=== PATIENT | female | born 1930 | race Caucasian/White ===

== ENCOUNTER 2016-03-25 13:05 | Inpatient (IN) | payer MEDICARE, BC ==
[2016-03-25 14:48] VITALS: BMI 22.5
[2016-03-25] MEDS ORDERED: PROMETHAZ-COD 6.25-10 MG/5 ML 5 ML CUP PO PRN (15:31)
[2016-03-25] MEDS: IPRATROPIUM-ALBUTEROL 3 ML NEB INHALATION SCH ×2 (15:44→19:44)
--- NOTE | 2016-03-25 16:21 | XR ---
EXAMINATION TYPE: XR chest 2V DATE OF EXAM: 03/25/2016 4:01 PM COMPARISON: 06/29/2015 HISTORY: Short of breath TECHNIQUE: Frontal and lateral views of the chest are obtained. FINDINGS: Heart is enlarged. There is pulmonary vascular congestion. There is slight blunting of cos tophrenic angles. There is a right axillary pacemaker with the lead tip in the right ventricle. Thora cic aorta is atheromatous. IMPRESSION: There is new congestive heart failure with pleural fluid and mild pulmonary edema compar ed to last exam.
[2016-03-25 16:25] LABS: HGB 13.7 gm/dL (11.4-16.0); MCHC 33.5 g/dL (31.0-37.0)
[2016-03-25] MEDS: SODIUM CHLORIDE 0.9% 1,000 ML IV SCH (16:32)
[2016-03-25] MEDS: methylPREDNISolone SOD SUCCI 40 MG/ML 1 ML VIAL IV SCH ×2 (16:33→23:29)
[2016-03-25 16:35] LABS: Basophils % (A) 1 %; CHCM 34.7; Eosinophils % (A) 1 %; HCT 40.8 % (34.0-46.0); HDW 2.39; Luc % (Auto) 3; Lymphocytes # (A) 1.1 k/uL (1.0-4.8); Lymphocytes % (A) 35 %; MCV 95.6 fL (80.0-100.0); Mean Platelet Volume 7.3; Monocytes # (A) 0.4 k/uL (0-1.0); Monocytes % (A) 11 %; Neutrophils # (A) 1.6 k/uL (1.3-7.7); Neutrophils % (A) 49 %; RBC 4.27 m/uL (3.80-5.40); RDW 13.5 % (11.5-15.5); WBC 3.2 k/uL (3.8-10.6)
[2016-03-25 16:40] LABS: ALT 68 U/L (9-52); AST 37 U/L (14-36); Alkaline Phosphatase 68 U/L (38-126); Anion Gap 11 mmol/L; Blood Urea Nitrogen 14 mg/dL (7-17); Calcium 9.3 mg/dL (8.4-10.2); Carbon Dioxide 27 mmol/L (22-30); Chloride 90 mmol/L (98-107); Glucose 112 mg/dL (74-99); Non-African American GFR(MDRD) >60 (>60 ml/min/1.73 sqM); Potassium 4.3 mmol/L (3.5-5.1); Sodium 128 mmol/L (137-145); Total Bilirubin 1.3 mg/dL (0.2-1.3); Total Protein 7.8 g/dL (6.3-8.2)
[2016-03-25] MEDS: AZITHROMYCIN 500 MG in SODIUM CHLORIDE 0.9% 250 ML IVPB SCH (17:35)
[2016-03-25] MEDS ORDERED: HYDROCHLOROTHIAZIDE 25 MG TAB PO SCH (21:00)
--- NOTE | 2016-03-25 22:41 | HP ---
CHIEF COMPLAINT: An 86-year-old white female is admitted with cough, congestion, shortness of breath worsening over the past week to the point she is dizzy with ambulation, oxygen level in the low 90s, unable to control cough and shortness of breath at home. She was admitted for probable COPD exacerbation, pneumonia and possibly congestive heart failure. SHE IS A DNR AT THIS TIME. Was started on IV Zithromax, DuoNeb updrafts, IV Rocephin and continue the home medications. She has a history of hypothyroidism, hypertension, diabetes mellitus, dementia, possibly atrial fibrillation for which she is on Coumadin. PAST SURGICAL HISTORY: See old chart. MEDICAL HISTORY: See old chart. MEDICATIONS: 1. Metformin 500 q.h.s. 2. Protonix 40 daily. 3. Hydrochlorothiazide 25 mg daily. 4. Potassium 20 mEq daily. 5. Atenolol 50 daily. REVIEW OF SYSTEMS: CARDIAC: As mentioned above. PULMONARY: As mentioned above. ENDOCRINE: She has noticed 1 or 2 pounds weight gain in the past week or 2. RESPIRATORY: Severe chronic cough, worsening over the past week with green-yellow phlegm, somewhat clear. CONSTITUTIONAL: Weakness, fatigue, dizziness, lightheadedness. SHE IS DNR. OPHTHALMOLOGIC: Negative. GI: Negative. : Negative. MUSCULOSKELETAL: She has chronic diffuse arthritis. PSYCH: Negative. SOCIAL HISTORY: She is moving out of [place] to live with her son at home for the last 2 days. Breathing has gotten worse over the last 2 days. She was a smoker, drank alcohol. PHYSICAL EXAM: Temp 97, pulse is 60s to 80s, respiratory rate 18 to 25, blood pressure 150s/70s. O2 is 96% on room air at this time. CARDIOVASCULAR: S1, S2. Lungs show scattered rhonchi and wheeze x4. Audible wheezing is heard. VASCULAR: There are no carotid bruits. HEMATOLOGIC: Negative Homans'. GI: Soft, nontender. VASCULAR: Normal dorsalis pedis, posterior tibial pulse, radial pulse. MUSCULOSKELETAL: Range of motion full x4. PSYCH: Fair mood and affect. NEUROLOGIC: Alert and oriented x3. No focal weakness. BNP is elevated at 2450. Chest x-ray shows CHF exacerbation. ASSESSMENT: 1. Acute diastolic congestive heart failure exacerbation. 2. Acute tracheobronchitis. 3. Acute chronic obstructive pulmonary disease exacerbation. 4. History of hypertension. 5. Diabetes mellitus. Will rule out flu with flu titers. IV steroids, updraft treatments, antibiotics are given. Cardiology and pulmonary consult were given.
[2016-03-25] MEDS: WARFARIN 5 MG TAB PO SCH (23:22)
[2016-03-25] MEDS: LEVOTHYROXINE 100 MCG TAB PO SCH (23:22)
[2016-03-25] MEDS: FUROSEMIDE 10 MG/ML 2 ML VIAL IV SCH (23:22)
[2016-03-25] MEDS: PANTOPRAZOLE 40 MG TABLET PO SCH (23:22)
[2016-03-25] MEDS: metFORMIN 500 MG TAB PO SCH (23:22)
[2016-03-25 23:30] LABS: Appearance,Urine Clear (Clear); Bilirubin,Urine Negative (Negative); Glucose,Urine (UA) Negative (Negative); Ketones,Urine Negative (Negative); Leukocyte Esterase,Urine Negative (Negative); Nitrite,Urine Negative (Negative); Particle Count 705; Protein,Urine 1+ (Negative); RBC,Urine 35 /hpf (0-5); Specific Gravity,Urine 1.007 (1.001-1.035); Squamous Epithelial Cell,Urine <1 /hpf (0-4); UA Billing (MACRO vs. MICRO) MICRO; Urobilinogen,Urine <2.0 mg/dL (<2.0); WBC,Urine 1 /hpf (0-5)
[2016-03-26 06:46] LABS: INR 2.8 (<1.1); Prothrombin Time 27.3 sec (9.0-12.0)
[2016-03-26] MEDS: IPRATROPIUM-ALBUTEROL 3 ML NEB INHALATION SCH ×4 (07:14→20:20)
[2016-03-26] MEDS: methylPREDNISolone SOD SUCCI 40 MG/ML 1 ML VIAL IV SCH ×2 (10:09→17:43)
[2016-03-26] MEDS: DONEPEZIL 5 MG TAB PO SCH (10:09)
[2016-03-26] MEDS: ATENOLOL 50 MG TAB PO SCH (10:09)
[2016-03-26] MEDS: FUROSEMIDE 10 MG/ML 2 ML VIAL IV SCH (10:09)
[2016-03-26] MEDS: POTASSIUM CHLORIDE ER 20 MEQ TAB.ER PO SCH (10:10)
--- NOTE | 2016-03-26 10:58 | CONS ---
DATE OF CONSULTATION: CHIEF COMPLAINT: Shortness of breath. Manasa is an 86-year-old lady with history of dementia, COPD, and congestive heart failure who is admitted to hospital with cough, congestion, and shortness of breath. O2 sats were in the low 90s. She was initially admitted as a possible COPD exacerbation, pneumonia and congestive heart failure. She was on the fourth floor and was transferred to sixth floor probably because she was more short of breath. At the time of my evaluation, patient appears fine. She is ambulating in the hallway and is free of any symptoms. Does not have shortness of breath for sure. The patient has history of dementia and also A. fib I am told. PAST MEDICAL AND SURGICAL HISTORY: As per chart. I am not able to obtain any meaningful information from the patient. Medications include hydrochlorothiazide, atenolol, potassium, Protonix. REVIEW OF SYSTEMS: I am unable to obtain any from her as she is presently confused and unreliable historian. On exam, comfortable at rest. Heart rate is 80 beats per minute, blood pressure 140/60, respirations 16. There is no jugular venous distention. Chest exam reveals good air entry bilaterally. I do not hear any crackles or rhonchi. Heart exam reveals first and second heart sounds, a grade 3/6 systolic murmur at the apex. Abdomen is soft. Exam of the extremities did not reveal edema. Peripheral pulses are felt. Labs show that the INR is 2.8. Potassium is 4.3. BNP is 2540. Hemoglobin is 13.7. A chest x-ray shows congestive heart failure. ASSESSMENT: 1. Acute onset congestive heart failure, probably secondary to diastolic dysfunction. However, I will obtain a 2-D echo to document her LV function. The last echocardiogram was a year ago and at that time she had normal LV function. 2. Chronic obstructive pulmonary disease exacerbation. 3. History of atrial fibrillation. 4. Sick sinus syndrome status post permanent pacemaker. PLAN: We will treat the patient with IV Lasix, atenolol, aspirin. She will continue her Coumadin.
[2016-03-26 11:56] LABS: Glucose,Whole Blood 279 mg/dL (75-99)
[2016-03-26 17:09] LABS: Glucose,Whole Blood 198 mg/dL (75-99)
[2016-03-26] MEDS: INSULIN LISPRO (humaLOG) 300 UNIT/3 ML VIAL SQ SCH ×2 (17:46→20:59)
[2016-03-26] MEDS: AZITHROMYCIN 500 MG in SODIUM CHLORIDE 0.9% 250 ML IVPB SCH (17:47)
[2016-03-26 19:22] LABS: ALT 67 U/L (9-52); AST 55 U/L (14-36); Alkaline Phosphatase 123 U/L (38-126); Anion Gap 19 mmol/L; Blood Urea Nitrogen 21 mg/dL (7-17); Calcium 9.2 mg/dL (8.4-10.2); Carbon Dioxide 22 mmol/L (22-30); Chloride 89 mmol/L (98-107); Glucose 219 mg/dL (74-99); Non-African American GFR(MDRD) >60 (>60 ml/min/1.73 sqM); Sodium 130 mmol/L (137-145); Total Bilirubin 1.1 mg/dL (0.2-1.3); Total Protein 7.8 g/dL (6.3-8.2)
[2016-03-26 19:23] LABS: Basophils % (A) 0 %; CH 32.9; CHCM 34.8; Eosinophils % (A) 1 %; HDW 2.38; Luc # (Auto) 0.05; Luc % (Auto) 2; Lymphocytes # (A) 0.5 k/uL (1.0-4.8); Lymphocytes % (A) 21 %; MCH 31.6 pg (25.0-35.0); MCHC 33.3 g/dL (31.0-37.0); MCV 94.8 fL (80.0-100.0); Mean Platelet Volume 6.5; Monocytes # (A) 0.2 k/uL (0-1.0); Monocytes % (A) 9 %; Neutrophils # (A) 1.7 k/uL (1.3-7.7); Neutrophils % (A) 67 %; RBC 4.43 m/uL (3.80-5.40); RDW 13.3 % (11.5-15.5); WBC 2.6 k/uL (3.8-10.6); WBC (Perox) 2.92
[2016-03-26] MEDS: SODIUM CHLORIDE 0.9% 1,000 ML IV SCH (19:40)
[2016-03-26 20:58] LABS: Glucose,Whole Blood 126 mg/dL (75-99)
[2016-03-26] MEDS: PANTOPRAZOLE 40 MG TABLET PO SCH (20:59)
[2016-03-26] MEDS: LEVOTHYROXINE 100 MCG TAB PO SCH (20:59)
[2016-03-26] MEDS: WARFARIN 5 MG TAB PO SCH (21:00)
[2016-03-26] MEDS: metFORMIN 500 MG TAB PO SCH (21:00)
[2016-03-27] MEDS: methylPREDNISolone SOD SUCCI 40 MG/ML 1 ML VIAL IV SCH ×4 (00:27→22:35)
[2016-03-27 01:00] LABS: Hemoglobin A1C 6.3 % (4.2-6.1)
[2016-03-27 05:44] LABS: Prothrombin Time 39.7 sec (9.0-12.0)
[2016-03-27] MEDS: INSULIN LISPRO (humaLOG) 300 UNIT/3 ML VIAL SQ SCH ×4 (06:57→22:37)
[2016-03-27 07:00] LABS: Glucose,Whole Blood 179 mg/dL (75-99)
--- NOTE | 2016-03-27 08:36 | P.PN ---
Subjective 86-year-old being seen by the attending this morning. Patient is pleasantly confused. Patient was initially admitted for an exacerbation of COPD as well as possible pneumonia patients being followed by cardiology and pulmonary. Patients being treated for an acute onset congestive heart failure likely diastolic dysfunction. Patient has a history of an atrial fibrillation with sick sinus syndrome status post pacemaker. The INR this morning is 4 in which the Coumadin is on hold Objective - Vital Signs Vital signs: Vital Signs Temp 97.6 F 03/27/16 04:00 Pulse 73 03/27/16 04:00 Resp 16 03/27/16 04:00 BP 138/62 03/27/16 04:00 Pulse Ox 97 03/27/16 04:00 Intake & Output 03/26/16 03/27/16 03/27/16 18:59 06:59 18:59 Intake Total 160 Output Total 500 Balance 160 -500 Weight 53.8 kg Intake: IV 100 Sodium Chloride 0.9% 1, 100 000 ml @ 50 mls/hr IV . Q20H PHILLIP Rx#:[id number] Oral 60 Output: Urine 500 Other: # Voids 1 - Exam Physical exam 86-year-old female sitting up on the edge of the bed pleasant appears in no acute distress Lungs currently on room air sats are 97% diminished at the bases no audible wheezing no cough noted no use of accessory muscles to breathe Heart S1-S2 audible monitor currently sinus positive murmur noted Abdomen soft nontender extremities no edema - Labs CBC & Chem 7: 03/26/16 18:48 03/26/16 18:48 Labs: Abnormal Lab Results - Last 24 Hours (Table) 03/25/16 03/26/16 03/26/16 Range/Units 16:12 11:50 16:41 WBC (3.8-10.6) k/uL Lymphocytes # (1.0-4.8) k/uL PT (9.0-12.0) sec Sodium (137-145) mmol/L Chloride (98-107) mmol/L BUN (7-17) mg/dL Glucose (74-99) mg/dL POC Glucose (mg/dL) 279 H 198 H (75-99) mg/dL Hemoglobin A1c 6.3 H (4.2-6.1) % AST (14-36) U/L ALT (9-52) U/L 03/26/16 03/26/16 03/26/16 Range/Units 18:48 18:48 20:40 WBC 2.6 L (3.8-10.6) k/uL Lymphocytes # 0.5 L (1.0-4.8) k/uL PT (9.0-12.0) sec Sodium 130 L (137-145) mmol/L Chloride 89 L (98-107) mmol/L BUN 21 H (7-17) mg/dL Glucose 219 H (74-99) mg/dL POC Glucose (mg/dL) 126 H (75-99) mg/dL Hemoglobin A1c (4.2-6.1) % AST 55 H (14-36) U/L ALT 67 H (9-52) U/L 03/27/16 03/27/16 Range/Units 04:55 06:51 WBC (3.8-10.6) k/uL Lymphocytes # (1.0-4.8) k/uL PT 39.7 H (9.0-12.0) sec Sodium (137-145) mmol/L Chloride (98-107) mmol/L BUN (7-17) mg/dL Glucose (74-99) mg/dL POC Glucose (mg/dL) 179 H (75-99) mg/dL Hemoglobin A1c (4.2-6.1) % AST (14-36) U/L ALT (9-52) U/L Microbiology - Last 24 Hours (Table) 03/25/16 23:15 Urine Culture - Preliminary Urine,Voided Assessment and Plan Plan: Impression Present on admission shortness of breath likely due to acute onset congestive heart failure likely diastolic dysfunction Chronic COPD with an acute exacerbation History of atrial fibrillation on anticoagulation Coumadin Coagulopathy Coumadin induced Sick sinus syndrome status post permanent pacemaker Present on admission shortness of breath likely due to acute tracheobronchitis Plan Continue with the plan of care per cardiology service defer to Continue to monitor electrolytes keep in a therapeutic range Resume home meds Continue with the current aerosol bronchodilators Solu-Medrol 40 IV every 8 to be tapered by pulmonology Continue with the IV antibiotics Rocephin and Zithromax as ordered Further recommendations pending The above dictated assessment and findings were discussed with Dr. Acros Impression and the plan of care have been dictated as directed. Barbara Henriquez nurse practitioner acting as a scribe for Dr. Arcos
[2016-03-27] MEDS: IPRATROPIUM-ALBUTEROL 3 ML NEB INHALATION SCH ×5 (08:45→19:35)
[2016-03-27] MEDS: FUROSEMIDE 10 MG/ML 2 ML VIAL IV SCH (09:20)
[2016-03-27] MEDS: POTASSIUM CHLORIDE ER 20 MEQ TAB.ER PO SCH (09:20)
[2016-03-27] MEDS: DONEPEZIL 5 MG TAB PO SCH (09:20)
[2016-03-27] MEDS: ATENOLOL 50 MG TAB PO SCH (09:20)
--- NOTE | 2016-03-27 10:28 | PN ---
Manasa is an 86-year-old lady who is pleasantly confused from dementia and is admitted to hospital with shortness of breath. Shortness of breath was thought to be due to diastolic heart failure and COPD. At the time of my evaluation this morning, she remains pleasantly confused and denies any symptoms. INR is elevated at 4 and Coumadin will be held. On exam, comfortable at rest. Vital signs are stable. Chest exam reveals occasional rhonchi bilaterally. Heart exam reveals first and second heart sounds. Systolic murmur in the left lower sternal border. Abdomen is soft. Exam of the extremities did not reveal edema. Peripheral pulses are felt. Patient is currently on antibiotics, Lasix, K-Dur, Coumadin, Tenormin. ASSESSMENT: Shortness of breath due to a combination of problems. I am going to switch her Lasix to p.o., hold the Coumadin. She is stable to be discharged either this evening or tomorrow morning.
--- NOTE | 2016-03-27 10:35 | PN ---
An 86-year-old white female admitted with dementia, COPD, congestive heart failure with cough, congestion, shortness of breath. She is much improved since yesterday. Oxygen for now are improving into the higher 90s with decreased cough, congestion. She is on IV Lasix, which helped her breathing as well as updraft treatments and IV antibiotics. She also has acute onset congestive heart failure secondary to diastolic dysfunction, COPD exacerbation improving, history of atrial fibrillation, sick sinus syndrome status post permanent pacemaker. Continue with IV Lasix, atenolol, aspirin and Coumadin. She is much improved. She is getting some delirium from being in the hospital and worsening of her dementia. We will continue to watch her closely. Diabetes mellitus will be controlled with Accu-Cheks protocol. Hydrochlorothiazide was discontinued secondary to hyponatremia. Please see further orders in the chart.
--- NOTE | 2016-03-27 10:52 | ECHOF ---
Referral Reason:chf MEASUREMENTS -------- HEIGHT: 165.1 cm WEIGHT: 53.5 kg BP: RVIDd: 3.1 cm (< 3.3) IVSd: 1.2 cm (0.6 - 1.1) LVIDd: 4.9 cm (3.9 - 5.3) LVPWd: 1.1 cm (0.6 - 1.1) IVSs: 1.6 cm LVIDs: 3.9 cm LVPWs: 1.2 cm LA Diam: 5.8 cm (2.7 - 3.8) LAESV Index (A-L): 83.40 ml/m Ao Diam: 2.6 cm (2.0 - 3.7) AV Cusp: 1.1 cm (1.5 - 2.6) LA Diam: 5.7 cm (2.7 - 3.8) MV EXCURSION: 15.618 mm (> 18.000) MV EF SLOPE: 62 mm/s (70 - 150) EPSS: 0.7 cm AV maxP.09 mmHg AV meanP.97 mmHg RAP: 20.00 mmHg RVSP: 62.82 mmHg FINDINGS -------- Paced rhythm. This was a technically adequate study. There is mild concentric left ventricular hypertrophy. Overall left ventricular systolic function is low-normal with, an EF between 50 - 55 %. The right ventricle is normal in size. LA is severely dilated >40 ml/m2 The right atrium is moderately enlarged. Peak/mean gradient across the Aortic Valve is 22.09mmHg / 8.97mmHg. Aov is stenotic with decrease opening. Mild mitral annular calcification present. Mild mitral regurgitation is present. Moderate to severe tricuspid regurgitation present. Right ventricular systolic pressure is normal at < 35 mmHg. There is moderate to severe pulmonary hypertension. There is no pulmonic regurgitation present. The aortic root size is normal. There is no pericardial effusion. CONCLUSIONS -------- 1. There is mild concentric left ventricular hypertrophy. 2. Right ventricular systolic pressure is normal at < 35 mmHg. 3. There is moderate to severe pulmonary hypertension. 4. Overall left ventricular systolic function is low-normal with, an EF between 50 - 55 %. 5. LA is severely dilated >40 ml/m2 6. The right atrium is moderately enlarged. 7. Peak/mean gradient across the Aortic Valve is 22.09mmHg / 8.97mmHg. 8. Aov is stenotic with decrease opening. 9. Mild mitral annular calcification present. 10. Mild mitral regurgitation is present. 11. Moderate to severe tricuspid regurgitation present. SLATE SPLITTER: Leola Wood RDCS
[2016-03-27 12:13] LABS: Glucose,Whole Blood 299 mg/dL (75-99)
[2016-03-27 17:09] LABS: Glucose,Whole Blood 190 mg/dL (75-99)
[2016-03-27] MEDS: AZITHROMYCIN 500 MG in SODIUM CHLORIDE 0.9% 250 ML IVPB SCH (17:37)
[2016-03-27 21:14] LABS: Glucose,Whole Blood 180 mg/dL (75-99)
[2016-03-27] MEDS: LEVOTHYROXINE 100 MCG TAB PO SCH (22:35)
[2016-03-27] MEDS: WARFARIN 5 MG TAB PO SCH (22:35)
[2016-03-27] MEDS: metFORMIN 500 MG TAB PO SCH (22:35)
[2016-03-27] MEDS: SODIUM CHLORIDE 0.9% 1,000 ML IV SCH (22:39)
[2016-03-28] MEDS: PANTOPRAZOLE 40 MG TABLET PO SCH ×2 (06:13→20:28)
[2016-03-28 06:25] LABS: Glucose,Whole Blood 196 mg/dL (75-99)
[2016-03-28] MEDS: INSULIN LISPRO (humaLOG) 300 UNIT/3 ML VIAL SQ SCH ×4 (07:05→20:52)
[2016-03-28] MEDS: FUROSEMIDE 10 MG/ML 2 ML VIAL IV SCH (08:02)
[2016-03-28] MEDS: DONEPEZIL 5 MG TAB PO SCH (08:02)
[2016-03-28] MEDS: methylPREDNISolone SOD SUCCI 40 MG/ML 1 ML VIAL IV SCH (08:03)
[2016-03-28] MEDS: POTASSIUM CHLORIDE ER 20 MEQ TAB.ER PO SCH (08:03)
[2016-03-28] MEDS: ATENOLOL 50 MG TAB PO SCH (08:03)
[2016-03-28] MEDS: IPRATROPIUM-ALBUTEROL 3 ML NEB INHALATION SCH ×4 (08:06→21:10)
[2016-03-28 08:41] LABS: Prothrombin Time 58.5 sec (9.0-12.0)
[2016-03-28 09:08] LABS: INR 5.8 (<1.1)
--- NOTE | 2016-03-28 11:28 | CDI ---
In responding to this query, please exercise your independent professional judgment. The [facility] Coding Staff and Clinical Documentation Specialists appreciate your assistance in clarifying documentation, maintaining compliance with coding guidelines, accurately documenting patients condition and capturing severity of illness. The fact that a question is asked does not imply that any particular answer is desired or expected. Communication forms are a method of clarifying documentation and are not made part of the Legal Health Record. Thank you in advance for your clarification. Last Revision, December 2014 Leo Valdes [address] [place] [address] Documentation Clarification Form Date: 03/28/2016 11:19:00 AM From: Nicole Dobbins RN, CCDS Admit Date: 03/25/2016 1:42:00 PM Patient Name: Manasa Mckeon Visit Number: [id number] Dr. Billy Arcos/Barbara Henriquez CNP Atrial fibrillation is documented in the H&P and Progress Notes. History/Risk Factors: Acute diastolic CHF, COPD, Atrial Fib, Sick Sinus Syndrome, Permanent Pacemaker Clinical Indicators: 03/27 Attending Progress Note: "History of atrial fibrillation on anticoagulation Coumadin Coagulopathy Coumadin induced." EKG/telemetry: Sick sinus syndrome with permanent pacemaker Treatment: Consults: Cardiology Tenormin 50mg PO QAM Coumadin 5mg PO Q HS In your professional opinion, can you please clarify the type of atrial fibrillation, if known? Chronic/Permanent Paroxysmal Persistent Other, please specify Unable to determine Please document in your progress notes and discharge summary in order to capture severity of illness and risk of mortality. Include clinical findings that support your diagnosis. FYI: Press F11 to launch patient chart Place X here if this finding has no clinical significance, is not applicable or if you are not able to provide any additional documentation. LIBIA
[2016-03-28 12:03] LABS: Glucose,Whole Blood 303 mg/dL (75-99)
[2016-03-28] MEDS: FUROSEMIDE 20 MG TAB PO SCH (12:14)
--- NOTE | 2016-03-28 12:31 | PN ---
An 86-year-old lady with severe dementia is admitted to hospital with shortness of breath due to a combination of problems including COPD and CHF. This morning, she is better. Continues to be pleasantly confused, ambulating without any issues. On exam, comfortable at rest. Vital signs are stable. There is no jugular venous distention. Chest exam reveals good air entry without any crackles or rhonchi. Heart exam reveals first and second heart sounds. No gallop. Exam of extremities did not reveal edema. Peripheral pulses are felt. Patient is currently on atenolol, Lasix, K-Dur, Coumadin. ASSESSMENT: 1. Atrial fibrillation with controlled ventricular rate. 2. Congestive heart failure exacerbation. 3. Coagulopathy. Patient's INR is elevated at 5.8, Coumadin is currently on hold. This is probably related to the antibiotics. Please give vitamin K to reverse the effects.
[2016-03-28] MEDS ORDERED: PHYTONADIONE ORAL 5 MG/5 ML ORAL.SYRG PO STA (14:38)
[2016-03-28] MEDS: SODIUM CHLORIDE 0.9% 1,000 ML IV SCH ×2 (14:42→20:29)
[2016-03-28] MEDS ORDERED: INFLUENZA VACCINE (3YR+) 60 MCG/0.5 ML SYRINGE IM ONE (15:48)
--- NOTE | 2016-03-28 15:51 | P.PN ---
Subjective 86-year-old female being seen this morning. Currently sitting up in bed. Discharge plan is in progress. Patient is being followed by keycase assemblercity maintenance manager is requesting that the patient be transferred to a subacute rehab. Monitor continues to show atrial fibrillation with paced rhythm rate controlled. Patient has a history of chronic atrial fibrillation. Additionally has a history of sick sinus syndrome with a permanent pacemaker. Patient is anticoagulated on Coumadin. On admission patient's INR was elevated to 4. This morning it's 5.8 which was corrected with vitamin K 86-year-old female was admitted on the day of admission on March 25 with a chief complaint of developing cough audible wheezing shortness of breath dizziness with ambulation. Patient lives at the [facility]. Patient has a code status indicating a DO NOT RESUSCITATE. Patient does have a history of hypothyroid dementia and chronic atrial fibrillation on anticoagulation. Patient was monitored closely. Additionally patient was followed by cardiology service. They felt that the elevated INR was probably related to the patient's antibiotics that the patient was on echocardiogram obtained on March 26 showed moderate to severe pulmonary hypertension and a left ventricular systolic function low normal EF between 50 and 55%. Patient was treated for what appears to be diastolic heart failure decompensated was given IV Lasix to diurese with a noted improvement in patient's symptoms. The discharge plan was followed by the keycase assembler at the request of the family patient was transferred to [facility] facility of [facility] choice for rehab In Objective - Vital Signs Vital signs: Vital Signs Temp 97.9 F 03/28/16 15:22 Pulse 65 03/28/16 15:22 Resp 21 03/28/16 15:22 BP 149/76 03/28/16 15:22 Pulse Ox 94 L 03/28/16 15:22 Intake & Output 03/27/16 03/28/16 03/28/16 18:59 06:59 18:59 Intake Total 600 720 Output Total 250 Balance 600 -250 720 Weight 58.8 kg Intake: Oral 600 720 Output: Urine 250 Other: Voiding Method Toilet Toilet # Voids 1 1 1 # Bowel Movements 0 1 - Exam Physical exam 86-year-old female sitting up on the edge of the bed pleasant appears in no acute distress Lungs currently on room air sats are 97% diminished at the bases no audible wheezing no cough noted no use of accessory muscles to breathe Heart S1-S2 audible monitor currently sinus positive murmur noted Abdomen soft nontender extremities no edema - Labs CBC & Chem 7: 03/26/16 18:48 03/26/16 18:48 Labs: Abnormal Lab Results - Last 24 Hours (Table) 03/27/16 03/27/16 03/28/16 Range/Units 17:02 21:13 06:24 PT (9.0-12.0) sec INR (<1.1) POC Glucose (mg/dL) 190 H 180 H 196 H (75-99) mg/dL 03/28/16 03/28/16 Range/Units 08:03 12:01 PT 58.5 H (9.0-12.0) sec INR 5.8 H* (<1.1) POC Glucose (mg/dL) 303 H (75-99) mg/dL Microbiology - Last 24 Hours (Table) 03/25/16 23:15 Urine Culture - Final Urine,Voided Assessment and Plan Plan: Impression Present on admission shortness of breath likely due to acute decompensated onset congestive heart failure likely diastolic dysfunction Chronic COPD with an acute exacerbation History of chronic permanent atrial fibrillation on anticoagulation Coumadin Coagulopathy Coumadin induced Sick sinus syndrome status post permanent pacemaker Present on admission shortness of breath likely due to acute tracheobronchitis Plan Continue with the plan of care per cardiology service defer to Continue to monitor electrolytes keep in a therapeutic range Resume home meds Continue with the current aerosol bronchodilators Continue with the IV antibiotics Rocephin and Zithromax as ordered Further recommendations pending Will taper the steroids switched to oral Anticipate discharging the next 24 hours to [facility] facility Coumadin on hold The above dictated assessment and findings were discussed with Dr. Arcos Impression and the plan of care have been dictated as directed. Barbara Henriquez nurse practitioner acting as a scribe for Dr. Arcos
[2016-03-28] MEDS ORDERED: AZITHROMYCIN 500 MG TAB PO SCH (17:00)
[2016-03-28 17:14] LABS: Glucose,Whole Blood 137 mg/dL (75-99)
[2016-03-28] MEDS: LEVOTHYROXINE 100 MCG TAB PO SCH (20:26)
[2016-03-28] MEDS: metFORMIN 500 MG TAB PO SCH (20:27)
[2016-03-28 20:49] LABS: Glucose,Whole Blood 249 mg/dL (75-99)
[2016-03-29 06:54] LABS: Glucose,Whole Blood 166 mg/dL (75-99)
[2016-03-29 07:57] VITALS: BP 129/65; RESP 18; TEMP 97.1
[2016-03-29] MEDS: INSULIN LISPRO (humaLOG) 300 UNIT/3 ML VIAL SQ SCH ×2 (08:00→12:41)
[2016-03-29] MEDS: IPRATROPIUM-ALBUTEROL 3 ML NEB INHALATION SCH ×2 (08:12→12:05)
[2016-03-29 08:27] VITALS: PULSE 72
[2016-03-29] MEDS: POTASSIUM CHLORIDE ER 20 MEQ TAB.ER PO SCH (08:50)
[2016-03-29] MEDS: FUROSEMIDE 20 MG TAB PO SCH (08:51)
[2016-03-29] MEDS: DONEPEZIL 5 MG TAB PO SCH (08:51)
[2016-03-29] MEDS: ATENOLOL 50 MG TAB PO SCH (08:51)
[2016-03-29] MEDS ORDERED: predniSONE 20 MG TAB PO SCH (09:00)
[2016-03-29 09:51] LABS: INR 1.9 (<1.1); Prothrombin Time 18.1 sec (9.0-12.0)
[2016-03-29 12:02] LABS: Glucose,Whole Blood 145 mg/dL (75-99)
--- NOTE | 2016-03-29 13:53 | P.DS ---
Providers Date of admission: 03/25/16 13:42 Expected date of discharge: 03/29/16 Attending physician: Billy Arcos Consults: 03/25/16 21:55 Consult Physician Routine Consulting Provider: Kahlil Smith Consult Reason/Comments: chf Do you want consulting provider notified?: Yes Primary care physician: [facility] Course: 86-year-old female was admitted on the day of admission on March 25 with a chief complaint of developing cough audible wheezing shortness of breath dizziness with ambulation. Patient lives at the [facility]. Patient has a code status indicating a DO NOT RESUSCITATE. Patient does have a history of hypothyroid ,dementia and chronic permanent atrial fibrillation on anticoagulation. Patient was monitored closely. Additionally patient was followed by cardiology service. They felt that the elevated INR was probably related to the patient's antibiotics that the patient was on echocardiogram obtained on March 26 showed moderate to severe pulmonary hypertension and a left ventricular systolic function low normal EF between 50 and 55%. Patient was treated for what appears to be acute diastolic heart failure decompensated was given IV Lasix diurese with a noted improvement in patient's symptoms. The discharge plan was followed by the top case assembler at the request of the family patient was transferred to [facility] choice for rehab The monitor did show atrial fibrillation with paced rhythm rate controlled. Patient does have a history of sick sinus syndrome resulting in the permanent pacemaker Impression discharge diagnosis Chronic permanent atrial fibrillation rate controlled Present on admission shortness of breath likely due to acute decompensated onset congestive heart failure likely diastolic dysfunction Chronic COPD with an acute exacerbation History of chronic permanent atrial fibrillation on anticoagulation Coumadin Present on admission Coagulopathy Coumadin induced Sick sinus syndrome status post permanent pacemaker Present on admission shortness of breath likely due to acute tracheobronchitis Chronic debility use of a walker for gait Present on admission shortness of breath suspect multifactorial due to an acute decompensated congestive heart failure diastolic dysfunction with tracheobronchitis with an acute exacerbation of COPD Echocardiogram March 28 moderate to severe pulmonary hypertension with a left ventricular systolic function low normal EF 50-55% suspect diastolic dysfunction The above dictated assessment and findings were discussed with Dr. Arcos. Impression and the plan of care have been dictated as directed. Barbara Henriquez nurse practitioner acting as a scribe for Dr. Arcos]. Plan - Discharge Summary New Discharge Prescriptions: Azithromycin [Zithromax] 500 mg PO DAILY@1700 #5 tab Furosemide [Lasix] 20 mg PO DAILY #30 tab predniSONE 40 mg PO DAILY #8 tab Discharge Medication List Atenolol 50 mg PO QAM 05/29/15 [History] metFORMIN HCL [Glucophage] 500 mg PO HS 05/30/15 [History] Donepezil HCl 5 mg PO QAM 06/29/15 [History] Levothyroxine Sodium [Synthroid] 100 mcg PO HS 03/25/16 [History] Omeprazole [PriLOSEC] 20 mg PO HS 03/25/16 [History] Potassium Chloride [Klor-Con 20] 20 meq PO QAM 03/25/16 [History] Warfarin [Coumadin] 5 mg PO HS 03/25/16 [History] Azithromycin [Zithromax] 500 mg PO DAILY@1700 #5 tab 03/29/16 [Rx] Furosemide [Lasix] 20 mg PO DAILY #30 tab 03/29/16 [Rx] predniSONE 40 mg PO DAILY #8 tab 03/29/16 [Rx] Follow up Appointment(s)/Referral(s): Billy Arcos MD [Primary Care Provider] - 03/30/16 Ambulatory/Diagnostic Orders: Prothrombin Time INR [LAB.AMB] Time Frame: 03/31/16, Location: Determined By Patient Discharge Disposition: TRANSFER TO SNF/ECF
== END 2016-03-29 15:47 | DRG 291 ==
LOC: 5MS5E 13:42 → 6SEL 03-26 07:43 → 4MS4W 03-28 15:01
PROVIDERS: ADMIT Family Medicine; ATTEND Family Medicine
PROC: 3E0234Z Introduction of Serum, Toxoid and Vaccine into Muscle, Percutaneous Approach (ICD-10-PCS; principal; 2016-03-29)
DX: I11.0 Hypertensive heart disease with heart failure (principal); J18.9 Pneumonia, unspecified organism; J44.0 Chronic obstructive pulmonary disease with (acute) lower respiratory infection; E87.1 Hypo-osmolality and hyponatremia; J44.1 Chronic obstructive pulmonary disease with (acute) exacerbation; I27.2 Other secondary pulmonary hypertension; F03.90 Unspecified dementia, unspecified severity, without behavioral disturbance, psychotic disturbance, mood disturbance, and anxiety; I48.2 Chronic atrial fibrillation; Z23 Encounter for immunization; I50.33 Acute on chronic diastolic (congestive) heart failure; J20.9 Acute bronchitis, unspecified; E11.9 Type 2 diabetes mellitus without complications; T45.515A Adverse effect of anticoagulants, initial encounter; R79.1 Abnormal coagulation profile; E03.9 Hypothyroidism, unspecified; Z66 Do not resuscitate; Z87.891 Personal history of nicotine dependence; Z95.0 Presence of cardiac pacemaker; Z79.01 Long term (current) use of anticoagulants; Z79.84 Long term (current) use of oral hypoglycemic drugs; Z79.899 Other long term (current) drug therapy
CPT/HCPCS: 71020; 80053; 81001; 83036; 83605; 83880; 85025; 85610; 87086; 87502; 90686; 93005; 93306; 94640

== ENCOUNTER → 2016-06-28 | Outpatient (CLI) | payer MEDICARE, BC | END | disposition home or self-care (01) | LOC: PTMAIN 10:08 | PROVIDERS: ATTEND Otolaryngology | DX: K21.9 Gastro-esophageal reflux disease without esophagitis (principal) | CPT/HCPCS: 31579 ==

== ENCOUNTER → 2016-12-06 | Outpatient (CLI) | payer MEDICARE, BC ==
--- NOTE | 2016-12-06 16:19 | FL ---
EXAMINATION TYPE: FL barium swallow DATE OF EXAM: 12/06/2016 CLINICAL HISTORY: Globus sensation TECHNIQUE: A double contrast esophagram is performed utilizing air and barium. A total of 2 minutes seconds of fluoroscopic time was utilized during procedure. 38 images were saved COMPARISON: None FINDINGS: The esophagus shows delayed motility with a blunted secondary wave and tertiary contraction s throughout the examination and emptying into the stomach. No evidence of hiatal hernia or strictur e noted. Incidentally noted likely propulsion diverticula seen left laterally of the lower cervical e sophagus appearing to be more inferior than a typical Zenker's diverticulum or Ryan Josep divertic ulum. No significant gastroesophageal reflux was seen during real time performance of this study. Ret ention within the piriform sinuses was present, moderate in degree. IMPRESSION: 1. Presbyesophagus with blunted secondary esophageal waves and tertiary contractions present througho ut the examination. 2. Small left lateral diverticulum, likely portion diverticulum, appearing more inferior and a typica l Zenker's diverticulum or [place]bury Josep diverticulum. 3. No evidence of stricture, hiatal hernia, or gastric reflux. 4. Moderate retention within the piriform sinuses incidentally noted.
== END | disposition home or self-care (01) ==
LOC: RADFLWHC 10:19
PROVIDERS: ATTEND Otolaryngology
DX: R13.10 Dysphagia, unspecified (principal)
CPT/HCPCS: 74220

== ENCOUNTER 2017-08-17 10:27 | Inpatient (IN) | payer MEDICARE, BC ==
[2017-08-17] MEDS ORDERED: ASPIRIN 81 MG PO STA (10:42)
[2017-08-17] MEDS ORDERED: NITROGLYCERIN OINT 1 INCH/GM PACKET TOPICAL STA (10:42)
--- NOTE | 2017-08-17 10:47 | ED ---
General Adult HPI - General Stated complaint: A-Fib Time Seen by Provider: 08/17/17 10:30 Source: RN notes reviewed - History of Present Illness Initial comments: This is an 87-year-old female who presents to the emergency department with past medical history of atrial fibrillation. Patient states that she comes in today because for the last hour and a half she's having pain from her shoulder on the left side all without were hand. Patient states it's achy sensation. Patient denies any chest pain or palpitations. Patient denies any shortness of breath or difficulty breathing. Patient denies any nausea vomiting or abdominal pain. Patient denies any lightheadedness or dizziness. Patient denies any numbness or weakness. Patient states she has not been ill recently with any fevers chills or cough. Patient states she has not been to this kind of pain in her arm in the past. - Related Data Home Medications Medication Instructions Recorded Confirmed Atenolol 50 mg PO QA 05/29/15 03/25/16 metFORMIN HCL [Glucophage] 500 mg PO HS 05/30/15 03/25/16 Donepezil HCl 5 mg PO QA 06/29/15 03/25/16 Levothyroxine Sodium [Synthroid] 100 mcg PO HS 03/25/16 03/25/16 Omeprazole [PriLOSEC] 20 mg PO HS 03/25/16 03/25/16 Potassium Chloride [Klor-Con 20] 20 meq PO [facility] 03/25/16 03/25/16 Warfarin [Coumadin] 5 mg PO HS 03/25/16 03/25/16 Previous Rx's Medication Instructions Recorded Azithromycin [Zithromax] 500 mg PO DAILY@1700 #5 tab 03/29/16 Furosemide [Lasix] 20 mg PO DAILY #30 tab 03/29/16 predniSONE 40 mg PO DAILY #8 tab 03/29/16 Allergies Allergy/AdvReac Type Severity Reaction Status Date / Time Sulfa (Sulfonamide AdvReac Unknown Verified 08/17/17 12:25 Antibiotics) Childhood Review of Systems ROS Statement: Those systems with pertinent positive or pertinent negative responses have been documented in the HPI. ROS Other: All systems not noted in ROS Statement are negative. 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 History of Any Multi-Drug Resistant Organisms: MRSA Date of last positivie culture/infection: 08/19/09 MDRO Source:: Left 5th Toe Past Surgical History: Adenoidectomy, Orthopedic Surgery, Pacemaker, Tonsillectomy Additional Past Surgical History / Comment(s): thyroid removed, bilateral cataracts removed, colonoscopy/egd normal, vanessa ankle sx and orif rt wrist, rt breast biopsy-benign, cervical myelogram, epidural cervical injections, bilateral carpal tunnel release. Past Anesthesia/Blood Transfusion Reactions: Previous Problems w/ Anesthesia Additional Past Anesthesia/Blood Transfusion Reaction / Comment(s): difficulty waking Type of Cardiac Device: Permanent Pacemaker Device Placement Date:: unk Past Psychological History: Depression Additional Psychological History / Comment(s): since passing of 4 yeras ago. Pt has a son who lives with her. She uses a walker that she borrowed from a neighbor and has a new walker arriving soon. She no longer drives-her 3 son's can take her to app. She is looking into relocating to [facility]. Smoking Status: Never smoker Past Alcohol Use History: None Reported Past Drug Use History: None Reported - Past Family History Father History Unknown: Yes Family Medical History: No Reported History Mother History Unknown: Yes Family Medical History: Hypertension General Exam - General Exam Comments Initial Comments: GENERAL: Patient is well-developed and well-nourished. Patient is nontoxic and well- hydrated and is in no acute distress. ENT: Neck is soft and supple. No significant lymphadenopathy is noted. Oropharynx is clear. Moist mucous membranes. Neck has full range of motion without eliciting any pain. EYES: The sclera were anicteric and conjunctiva were pink and moist. Extraocular movements were intact and pupils were equal round and reactive to light. Eyelids were unremarkable. PULMONARY: Unlabored respirations. Good breath sounds bilaterally. No audible rales rhonchi or wheezing was noted. CARDIOVASCULAR: There is a regular rate and rhythm without any murmurs gallops or rubs. ABDOMEN: Soft and nontender with normal bowel sounds. No palpable organomegaly was noted. There is no palpable pulsatile mass. SKIN: Skin is clear with no lesions or rashes and otherwise unremarkable. NEUROLOGIC: Patient is alert and oriented x3. Cranial nerves II through XII are grossly intact. Motor and sensory are also intact. Normal speech, volume and content. Symmetrical smile. MUSCULOSKELETAL: Normal extremities with adequate strength and full range of motion. No lower extremity swelling or edema. No calf tenderness. LYMPHATICS: No significant lymphadenopathy is noted PSYCHIATRIC: Normal psychiatric evaluation. Normal interpersonal interactions appears functionally intact in deals appropriately with others. Course Vital Signs 08/17/17 10:37 Temperature 97.6 F Pulse Rate 86 Respiratory 18 Rate Blood Pressure 157/94 O2 Sat by Pulse 97 Oximetry Medical Decision Making - Medical Decision Making EKG shows atrial fibrillation with multiple PVCs at 97 bpm QRS 134 QT interval 380 QTC is 482. Patient's EKG shows no acute abnormalities when compared to an old EKG Except for the increased amount of PVCs. We were unable to get a pulse manually with palpation or with the Doppler. Dr. Davila came down wanted to admit the patient and wanted the patient on heparin. Patient's chest x-ray shows mild CHF. ENT angiogram of the left upper extremity showed No flow after the brachial artery. I started the patient on heparin per Dr. Davila's instructions. I admitted the patient I consult the Dr. Davila. Dr. Arcos except the admission. FL wrote admitting orders - Lab Data Result diagrams: 08/17/17 10:47 08/17/17 10:47 Lab Results 08/17/17 08/17/17 08/17/17 Range/Units 10:47 10:47 10:47 WBC 6.9 (3.8-10.6) k/uL RBC 4.42 (3.80-5.40) m/uL Hgb 13.8 (11.4-16.0) gm/dL Hct 41.6 (34.0-46.0) % MCV 94.0 (80.0-100.0) fL MCH 31.2 (25.0-35.0) pg MCHC 33.1 (31.0-37.0) g/dL RDW 13.6 (11.5-15.5) % Plt Count 221 (150-450) k/uL Neutrophils % 59 % Lymphocytes % 30 % Monocytes % 7 % Eosinophils % 2 % Basophils % 0 % Neutrophils # 4.0 (1.3-7.7) k/uL Lymphocytes # 2.1 (1.0-4.8) k/uL Monocytes # 0.5 (0-1.0) k/uL Eosinophils # 0.2 (0-0.7) k/uL Basophils # 0.0 (0-0.2) k/uL PT (9.0-12.0) sec INR (<1.2) APTT (22.0-30.0) sec Sodium 140 (137-145) mmol/L Potassium 4.4 (3.5-5.1) mmol/L Chloride 104 (98-107) mmol/L Carbon Dioxide 24 (22-30) mmol/L Anion Gap 12 mmol/L BUN 17 (7-17) mg/dL Creatinine 0.80 (0.52-1.04) mg/dL Est GFR (CKD-EPI)AfAm 77 (>60 ml/min/1.73 sqM) Est GFR (CKD-EPI)NonAf 67 (>60 ml/min/1.73 sqM) Glucose 196 H (74-99) mg/dL Calcium 9.5 (8.4-10.2) mg/dL Magnesium 1.8 (1.6-2.3) mg/dL Total Bilirubin 1.1 (0.2-1.3) mg/dL AST 25 (14-36) U/L ALT 18 (9-52) U/L Alkaline Phosphatase 58 (38-126) U/L Total Creatine Kinase 23 L (30-135) U/L CK-MB (CK-2) 0.5 (0.0-2.4) ng/mL CK-MB (CK-2) Rel Index 2.2 Troponin I <0.012 (0.000-0.034) ng/mL Total Protein 6.9 (6.3-8.2) g/dL Albumin 4.1 (3.5-5.0) g/dL 08/17/17 Range/Units 10:47 WBC (3.8-10.6) k/uL RBC (3.80-5.40) m/uL Hgb (11.4-16.0) gm/dL Hct (34.0-46.0) % MCV (80.0-100.0) fL MCH (25.0-35.0) pg MCHC (31.0-37.0) g/dL RDW (11.5-15.5) % Plt Count (150-450) k/uL Neutrophils % % Lymphocytes % % Monocytes % % Eosinophils % % Basophils % % Neutrophils # (1.3-7.7) k/uL Lymphocytes # (1.0-4.8) k/uL Monocytes # (0-1.0) k/uL Eosinophils # (0-0.7) k/uL Basophils # (0-0.2) k/uL PT 11.7 (9.0-12.0) sec INR 1.2 H (<1.2) APTT 24.4 (22.0-30.0) sec Sodium (137-145) mmol/L Potassium (3.5-5.1) mmol/L Chloride (98-107) mmol/L Carbon Dioxide (22-30) mmol/L Anion Gap mmol/L BUN (7-17) mg/dL Creatinine (0.52-1.04) mg/dL Est GFR (CKD-EPI)AfAm (>60 ml/min/1.73 sqM) Est GFR (CKD-EPI)NonAf (>60 ml/min/1.73 sqM) Glucose (74-99) mg/dL Calcium (8.4-10.2) mg/dL Magnesium (1.6-2.3) mg/dL Total Bilirubin (0.2-1.3) mg/dL AST (14-36) U/L ALT (9-52) U/L Alkaline Phosphatase (38-126) U/L Total Creatine Kinase (30-135) U/L CK-MB (CK-2) (0.0-2.4) ng/mL CK-MB (CK-2) Rel Index Troponin I (0.000-0.034) ng/mL Total Protein (6.3-8.2) g/dL Albumin (3.5-5.0) g/dL Critical Care Time Critical Care Time: Yes Total Critical Care Time: 35 Disposition Clinical Impression: Arterial occlusion Disposition: ADMITTED IP TO THIS HOSP Referrals: Billy Arcos MD [Primary Care Provider] - 1-2 days Time of Disposition: 12:36
[2017-08-17 11:08] LABS: Albumin 4.1 g/dL (3.5-5.0); Calcium 9.5 mg/dL (8.4-10.2); Magnesium 1.8 mg/dL (1.6-2.3); Potassium 4.4 mmol/L (3.5-5.1); Total Bilirubin 1.1 mg/dL (0.2-1.3); Total Protein 6.9 g/dL (6.3-8.2)
[2017-08-17 11:11] LABS: Basophils % (A) 0 %; Eosinophils # (A) 0.2 k/uL (0-0.7); Eosinophils % (A) 2 %; HCT 41.6 % (34.0-46.0); HGB 13.8 gm/dL (11.4-16.0); INR 1.2 (<1.2); Lymphocytes # (A) 2.1 k/uL (1.0-4.8); Lymphocytes % (A) 30 %; MCH 31.2 pg (25.0-35.0); MCHC 33.1 g/dL (31.0-37.0); Mean Platelet Volume 7.3; Monocytes # (A) 0.5 k/uL (0-1.0); Monocytes % (A) 7 %; Neutrophils % (A) 59 %; Partial Thromboplastin Time 24.4 sec (22.0-30.0); Platelet Count 221 k/uL (150-450); Prothrombin Time 11.7 sec (9.0-12.0); RBC 4.42 m/uL (3.80-5.40); RDW 13.6 % (11.5-15.5); WBC 6.9 k/uL (3.8-10.6)
[2017-08-17 11:19] LABS: Creatine Kinase 23 U/L (30-135)
--- NOTE | 2017-08-17 11:27 | XR ---
EXAMINATION TYPE: XR chest 2V DATE OF EXAM: 08/17/2017 COMPARISON: Chest x-ray March 25, 2016. CTA chest June 02, 2015. HISTORY: Chest and left shoulder pain. TECHNIQUE: Frontal and lateral views of the chest are obtained. FINDINGS: There is cardiomegaly with single lead right-sided pacemaker redemonstrated. Osseous struct ures are demineralized. There is slightly more prominent small right pleural effusion and associated right basilar atelectasis. There is background chronic parenchymal change. Cannot exclude some mild i nterstitial edema on background of chronic change. An azygos lobe/fissure is present. IMPRESSION: Suspect degree of CHF exacerbation as there is marked cardiomegaly with small right grea ter than left pleural effusions and suspected mild interstitial edema on background of mild chronic p arenchymal change. Correlate clinically.
[2017-08-17 11:31] LABS: Creatine Kinase MB 0.5 ng/mL (0.0-2.4); Troponin I <0.012 ng/mL (0.000-0.034)
[2017-08-17] MEDS ORDERED: HEPARIN SODIUM,PORCINE 10,000 UNIT/ML 1 ML VIAL IV ONE (12:32)
[2017-08-17] MEDS ORDERED: SODIUM CHLORIDE 0.9% 1,000 ML IV ONE (12:39)
--- NOTE | 2017-08-17 12:41 | CT ---
EXAMINATION TYPE: CT angio upper extremity LT DATE OF EXAM: 08/17/2017 12:28 PM COMPARISON: CT chest abdomen and pelvis June 02, 2015 HISTORY: Pain CT DLP: 793.3 mGycm Automated exposure control for dose reduction was used. TECHNIQUE: Performed without and with IV Contrast, patient injected with 100 mL of Isovue 370. MIP images are created and reviewed. FINDINGS: There is persistent mild to moderate mixed plaque in the aortic arch. There is normal three-vessel or igin from April. There is mild to moderate calcified plaque in the left subclavian artery without sig nificant stenosis. There is no significant plaque or stenosis in the left axillary artery. There is s uboptimal opacification of left brachial artery best visualized on mid series 12 image 21 without obv ious plaque or stenosis up to distal humeral level. Passes point there is poor or no opacification ma memo evaluation suboptimal into the radial and ulnar veins branches. There is severely calcified plaq ue diffusely in the left ulnar artery and more moderate calcified plaque diffusely in the left radial artery. There is suboptimal evaluation or nonvisualization of superficial and deep palmar arches. There is incidental cardiomegaly redemonstrated. Coronary artery calcification is again seen which is noted marker for coronary artery disease. Right-sided pacemaker is redemonstrated. There is azygos l obe/fissure. There is left basilar tiny pleural effusion and associated scarring and/or atelectasis. Exaggerated curvature in the thoracolumbar spine is present. IMPRESSION: SUBOPTIMAL STUDY WITH NONOPACIFIED UPPER EXTREMITY ARTERIAL SYSTEM BEGINNING IN THE DISTAL BRACHIAL A RTERY AT LEVEL OF DISTAL HUMERUS. NO SIGNIFICANT PLAQUE OR STENOSIS UP TO THIS LEVEL IS IDENTIFIED. T HERE IS DIFFUSE SEVERELY CALCIFIED PLAQUE IN THE ULNAR ARTERY NOTED.
[2017-08-17] MEDS: HEPARIN SOD,PORK IN 0.45% NACL 25,000 UNIT in 0.45% NACL 1 500ML.BAG IV SCH (13:08)
[2017-08-17] MEDS ORDERED: MORPHINE SULFATE 2 MG/ML SYRINGE IVP STA (13:29)
[2017-08-17] MEDS ORDERED: LOPERAMIDE 2 MG CAP PO PRN (13:31)
[2017-08-17 15:07] VITALS: BMI 20.7
--- NOTE | 2017-08-17 15:33 | CONS ---
CONSULTATION This is an 87-year-old female. She came to the emergency room with history of some discomfort in the left arm starting from the shoulder down. Patient had this happen a couple of hours prior to coming to the emergency room. The patient has history of atrial fibrillation, on Coumadin. Patient also has a history of dementia, hyperlipidemia and memory impairment. PHYSICAL EXAMINATION: Patient was seen in the intensive care unit. NECK: Supple. No bruit appreciated. CHEST: Clear. Patient has a pacemaker on the left side of the chest. ABDOMEN: Soft. Right arm brachial and radial pulses are present. Left brachial is palpable, radial by the Doppler. Left hand is cooler than the right hand. Motor functions are normal. I have reviewed the CT scan with Dr. Guadarrama. Patient's axillary vein, subclavian vein and brachial vein were visualized. No dye was noted. Because of calcification of the radial arteries, it was a suboptimal study. PLAN: Patient will be put on heparin. We will follow with you. SANDRA / GASTONN: [id number] /
[2017-08-17] MEDS ORDERED: HYDROcodone/APAP 5-325MG 1 EACH TAB PO PRN (16:27)
--- NOTE | 2017-08-17 20:09 | CT ---
EXAMINATION TYPE: CT brain wo con DATE OF EXAM: 08/17/2017 COMPARISON: NONE HISTORY: Visual disturbance, spots to peripheral vision. CT DLP: 939 mGycm Automated exposure control for dose reduction was used. FINDINGS: There is moderate patchy hypodensity in the periventricular white matter. There is no mass effect nor midline shift. There is no sign of intracranial hemorrhage. There is some cortical hypodensity in th e left posterior parietal lobe. Calvarium is intact. IMPRESSION: CEREBRAL ATROPHY AND EXTENSIVE CHRONIC SMALL VESSEL ISCHEMIA. THERE IS GENERAL PROGRESSION OF THE SMA LL VESSEL ISCHEMIA COMPARED TO OLD EXAM.
--- NOTE | 2017-08-17 20:44 | US ---
EXAMINATION TYPE: US carotid duplex BILAT DATE OF EXAM: 08/17/2017 COMPARISON: 05/30/2015 CLINICAL HISTORY: seeing spots in peripheral. intermittent visual disturbances for 2 years EXAM MEASUREMENTS: RIGHT: Peak Systolic Velocity (PSV) cm/sec ----- Right CCA: 65.8 ----- Right ICA: 130.7 ----- Right ECA: 129.1 ICA/CCA ratio: 2.0 RIGHT: End Diastole cm/sec ----- Right CCA: 10.9 ----- Right ICA: 24.1 ----- Right ECA: 11.1 LEFT: Peak Systolic Velocity (PSV) cm/sec ----- Left CCA: 54.9 ----- Left ICA: 92.5 ----- Left ECA: 71.3 ICA/CCA ratio: 1.7 LEFT: End Diastole cm/sec ----- Left CCA: 6.9 ----- Left ICA: 15.5 ----- Left ECA: 6.5 VERTEBRALS (direction of flow): Right Vertebral: Antegrade Left Vertebral: Antegrade Rhythm: Normal Moderate to severe plaque right bifurcation. Difficult to obtain velocities right proximal ICA due to shadowing plaque. Mild plaque left bifurcation. IMPRESSION: There is antegrade flow in the vertebral arteries. There is some elevated velocity on the right side with plaque formation. This is suggestive of more t velasquez 50% stenosis in the right internal carotid artery. There is probably 50% stenosis also in the lef t internal carotid artery. There is probably no change compared to last exam. Criteria for Assigning % of Stenosis / Diameter reduction (Estimation based on the indirect measurements of the internal carotid artery velocities (ICA PSV). 1. Normal (no stenosis)=ICA PSV < 125 cm/s: ratio < 2.0: ICA EDV<40 cm/s. 2. Less than 50% stenosis=ICA PSV < 125 cm/s: ratio < 2.0: ICA EDV<40 cm/s. 3. 50 to 69% stenosis=ICA PSV of 125 to 230 cm/s: ration 2.0 ? 4.0: ICA EDV 40-100 cm/s. 4. Greater than 70% stenosis to near occlusion= ICA PSV > 230 cm/s: ratio > 4.0: ICA EDV > 100 cm/s. 5. Near occlusion= ICA PSV velocities may be low or undetectable: variable ratio and ICA EDV. 6. Total occlusion=unable to detect flow.
[2017-08-17] MEDS: PANTOPRAZOLE 40 MG TABLET PO SCH (21:16)
[2017-08-17] MEDS: LEVOTHYROXINE 100 MCG TAB PO SCH (22:00)
[2017-08-18 05:58] LABS: Glucose,Whole Blood 110 mg/dL (75-99)
[2017-08-18 08:11] LABS: INR 1.3 (<1.2); Prothrombin Time 12.7 sec (9.0-12.0)
--- NOTE | 2017-08-18 09:11 | PN ---
PROGRESS NOTE This is 87-year-old female she came with discomfort in the left arm to the ER yesterday and had CTA of the left arm which showed brachial artery was visualized, but the radial artery was not visualized due to marked calcification. PHYSICAL EXAMINATION: On examination, she has brachial pulses present, faint Doppler on the radial artery and artery has no Doppler signal. Motor functions are present. I have discussed with the daughter and the son and also with Dr. Billy Arcos, because we do not have much information about the forearm circulation, we would like to do left arm angiogram to see more information about the radial ulnar artery. They agreed and we will proceed. MMODL / IJN: [id number] /
--- NOTE | 2017-08-18 09:17 | HP ---
HISTORY AND PHYSICAL CHIEF COMPLAINT: 87-year-old white female with left arm coldness and feeling of sensation in her left arm. She was admitted to the hospital after having minimal blood flow to her left arm. She was started on IV heparin by emergency room doctor. Await vascular doctor consult. No lightheaded, dizziness, syncope. No nausea or vomiting. She had some vision disturbance over the last month in her eyes. She has atrial fibrillation, came in on subtherapeutic Coumadin. She has had diarrhea at home from metformin possibly. HOME MEDICATION: Include atenolol 50 q.a.m., metformin 500 daily, Donepezil 5 mg daily, Synthroid 100 mcg daily, Crestor 20 mg daily. Potassium 20 mEq daily, Coumadin with 5 mg at night, Lasix 20 mg daily, prednisone 40 mg daily. ALLERGIES: To SULFA DRUGS. REVIEW OF SYSTEMS: Fourteen-point review of systems negative except for mentioned in HPI. PAST MEDICAL HISTORY: Atrial fibrillation, dementia, CVA, TIA, dyslipidemia, hypertension, memory impairment, osteoarthritis, hypothyroidism, vascular disorder, left facial drooping, TIA, Shantel's disease, hypothyroid, right eye vision loss, glaucoma, MRSA, depression. SURGICAL HISTORY: Adenoidectomy, orthopedic surgery, pacemaker, tonsillectomy, bilateral ankle symptoms, ORIF right wrist, right breast biopsy, cervical myelogram, permanent pacemaker. FAMILY HISTORY: Father and mother, hypertension. PHYSICAL EXAM: Well developed, well nourished, white female who looks her stated age. Nontoxic in appearance. Her left extremity does appear cold, decreased radial pulse on the left arm. Her right arm is warm, intact. She is neurovascular intact in her left arm. Pulmonary is good. Cardiovascular irregular regular rhythm. GI soft. Hematology negative Homans. Psych fair mood and affect. NEUROLOGIC: Alert orient x3. Ophthalmologic pupils equal, round, reactive to light and accommodation. Temp 97.6, pulse 86, respiratory rate 18, blood pressure 150s/90s, O2 97% on room air. EKG: atrial fibrillation, multiple PVCs. PLAN: Await Dr. Davila's recommendation. Possible to get Cardiology involved. Atrial fibrillation and recommendation on blood thinner, possibly Eliquis will be needed. Awaiting Dr. Davila's assessment of what he is going to do. Carotid Doppler, brain CT were seen for possible vision abnormalities. There is about 50% carotid stenosis and both ICA on the left and right. Await consultation from possibly ophthalmologic exam from Ophthalmology as CT of the brain is negative. Please see further orders. MMODL / IJN: [id number] /
[2017-08-18] MEDS ORDERED: LIDOCAINE 1% INJ 10MG/ML (20 ML MDV) SQ ONE (09:45)
[2017-08-18] MEDS ORDERED: fentaNYL (PF) 50 MCG/ML 2 ML AMP IV ONE (09:50)
[2017-08-18] MEDS ORDERED: IOPAMIDOL-250 100ML BTL INTRAARTER ONE (10:07)
[2017-08-18] MEDS ORDERED: IOPAMIDOL-250 50ML BTL INTRAARTER ONE (10:10)
[2017-08-18 11:18] LABS: Glucose,Whole Blood 121 mg/dL (75-99)
[2017-08-18] MEDS: POTASSIUM CHLORIDE ER 20 MEQ TAB.ER PO SCH (11:25)
[2017-08-18] MEDS: DONEPEZIL 5 MG TAB PO SCH (11:25)
[2017-08-18] MEDS: FUROSEMIDE 20 MG TAB PO SCH (11:25)
--- NOTE | 2017-08-18 12:11 | PCN ---
PROCEDURE NOTE PREOPERATIVE DIAGNOSIS: Left arm pain. PROCEDURE: Arch study and selection of the left subclavian artery. This patient came to the emergency room yesterday with pain in her left shoulder and ER physician did CT angiogram which showed the brachial artery is open at the level of the humerus and there is diffuse to severely calcified in the ulnar artery noted and also there were multiple collaterals noted. Since this was not a very optimal study, we did the left arm angiogram. The patient brought to the laboratory machinist and the right groin was prepped and draped in usual sterile manner and 1% lidocaine was infiltrated. Micropuncture introduced into the right common femoral artery. Micropuncture guide was passed and 4-Spanish dilator advanced on top of the guidewire then we passed a guidewire and placed a 4-Spanish sheath. Through that we passed a guidewire and pigtail catheter advanced on top of the guidewire where the arch study was performed. Right innominate artery was visualized and subclavian was well visualized. Left common was visualized. Subclavian artery was visualized. Then we exchanged with a JB2 catheter and with hand injection left arm angiogram was performed. Left subclavian artery was found to be patent. Left axillary artery was found to be patent. The brachial artery distally has some atherosclerosis disease. Then there was a total occlusion of the brachial artery distally with multiple collaterals. Ulnar radial artery was not visualized. The ulnar artery was heavily calcified. Radial artery tapers at the wrist level. The catheter and sheath were removed. . The patient tolerated the procedure well. MMODL / IJN: [id number] /
[2017-08-18 12:31] LABS: Hemoglobin A1C 6.4 % (4.0-6.0)
--- NOTE | 2017-08-18 13:39 | IR ---
EXAMINATION TYPE: Fluoroscopy DATE OF EXAM: 08/18/2017 COMPARISON: NONE HISTORY: Fluoroscopy support Fluoroscopy support supplied to the referring clinician. See dictated report from *surgery, 7.3 familia ryan fluoroscopy time supplied, 285 intraoperative C-arm images
[2017-08-18] MEDS: DILTIAZEM 50 MG in SODIUM CHLORIDE 0.9% 40 ML IV SCH ×2 (14:01→18:08)
[2017-08-18 16:35] LABS: Glucose,Whole Blood 181 mg/dL (75-99)
[2017-08-18] MEDS: HEPARIN SOD,PORK IN 0.45% NACL 25,000 UNIT in 0.45% NACL 1 500ML.BAG IV SCH (18:09)
[2017-08-18] MEDS: LEVOTHYROXINE 100 MCG TAB PO SCH (20:11)
[2017-08-18] MEDS: PANTOPRAZOLE 40 MG TABLET PO SCH (20:11)
[2017-08-18 21:01] LABS: Glucose,Whole Blood 128 mg/dL (75-99)
[2017-08-19] MEDS: DILTIAZEM 50 MG in SODIUM CHLORIDE 0.9% 40 ML IV SCH ×3 (00:42→08:22)
[2017-08-19 05:52] LABS: Glucose,Whole Blood 154 mg/dL (75-99)
[2017-08-19 06:56] LABS: HCT 39.6 % (34.0-46.0); HGB 13.2 gm/dL (11.4-16.0); MCH 31.3 pg (25.0-35.0); MCHC 33.3 g/dL (31.0-37.0); Mean Platelet Volume 6.8; Platelet Count 226 k/uL (150-450); RBC 4.21 m/uL (3.80-5.40); RDW 13.5 % (11.5-15.5); WBC 8.7 k/uL (3.8-10.6)
[2017-08-19 06:59] LABS: Calcium 9.5 mg/dL (8.4-10.2); Magnesium 1.6 mg/dL (1.6-2.3); Potassium 3.9 mmol/L (3.5-5.1); Total Bilirubin 1.7 mg/dL (0.2-1.3); Total Protein 6.5 g/dL (6.3-8.2)
[2017-08-19] MEDS: FUROSEMIDE 20 MG TAB PO SCH (07:54)
[2017-08-19] MEDS: POTASSIUM CHLORIDE ER 20 MEQ TAB.ER PO SCH (07:54)
[2017-08-19] MEDS: DONEPEZIL 5 MG TAB PO SCH (07:55)
[2017-08-19 11:17] LABS: Glucose,Whole Blood 146 mg/dL (75-99)
--- NOTE | 2017-08-19 11:22 | PN ---
PROGRESS NOTE This is an 87-year-old pleasant female. She came in with left arm numbness and discomfort. We did the angiogram. 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 The patient was put on heparin. The patient is on DO NOT RESUSCITATE ORDERS. Today, we examined her today. Her hand is warm and no ischemic changes noted. Patient has normal motor function. PLAN: The patient will be on Coumadin. When therapeutic, patient will go home. I will follow in my office on . I have discussed this case with the daughter in detail. The family does not want any major surgical intervention. She is stable from a vascular point of view. Thank you very much. SANDRA / GASTONN: [id number] /
[2017-08-19] MEDS: APIXABAN 2.5 MG TABLET PO SCH ×2 (12:15→19:41)
--- NOTE | 2017-08-19 12:20 | P.CRDCN ---
History of Present Illness Consult date: 08/19/17 Chief complaint: Left arm discomfort History of present illness: This is a pleasant 87-year-old female patient with a past medical history significant for chronic atrial fibrillation on oral anticoagulation with Coumadin as well as diabetes and underlying dementia presented to the emergency room complaining of left arm discomfort. The patient was found to have diminished pulse in her left radial artery and left brachial artery. 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 The decision was made toward conservative medical approach and medical treatment only. We get involved in her care because of A. fib. The patient has been in A. fib with uncontrolled heart rate. She is currently on Cardizem at 10 mg per hour. For some reason she is not on any AV kamla elba agents at home. She was only on Coumadin for anticoagulation. The patient underwent an echocardiogram a year ago and that showed normal LV function. Also the echo showed mild aortic stenosis. On physical examination the patient does have quite significant aortic stenosis murmur seems to be more than mild. I am going to start the patient on oral beta elba with metoprolol. Try to wean her from the Cardizem drip. The Coumadin was stopped and the patient was started on oral anticoagulation with Eliquis. I would also obtain an echocardiogram was Doppler. 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 History of Any Multi-Drug Resistant Organisms: MRSA Date of last positivie culture/infection: 08/19/09 MDRO Source:: Left 5th Toe Past Surgical History: Adenoidectomy, Orthopedic Surgery, Pacemaker, Tonsillectomy Additional Past Surgical History / Comment(s): thyroid removed, bilateral cataracts removed, colonoscopy/egd normal, vanessa ankle sx and orif rt wrist, rt breast biopsy-benign, cervical myelogram, epidural cervical injections, bilateral carpal tunnel release. Past Anesthesia/Blood Transfusion Reactions: Previous Problems w/ Anesthesia Additional Past Anesthesia/Blood Transfusion Reaction / Comment(s): difficulty waking Type of Cardiac Device: Permanent Pacemaker Device Placement Date:: unk Past Psychological History: Depression Additional Psychological History / Comment(s): [facility] Smoking Status: Never smoker Past Alcohol Use History: None Reported Past Drug Use History: None Reported - Past Family History Father History Unknown: Yes Family Medical History: No Reported History Mother History Unknown: Yes Family Medical History: Hypertension Medications and Allergies Home Medications Medication Instructions Recorded Confirmed Type metFORMIN HCL [Glucophage] 500 mg PO HS 05/30/15 08/17/17 History Donepezil HCl 5 mg PO QAM 06/29/15 08/17/17 History Levothyroxine Sodium [Synthroid] 100 mcg PO HS 03/25/16 08/17/17 History Omeprazole [PriLOSEC] 20 mg PO HS 03/25/16 08/17/17 History Potassium Chloride [Klor-Con 20] 20 meq PO QAM 03/25/16 08/17/17 History Warfarin [Coumadin] 5 mg PO HS 03/25/16 08/17/17 History Furosemide [Lasix] 20 mg PO DAILY #30 tab 03/29/16 08/17/17 Rx Loperamide [Imodium] 4 mg PO ONCE PRN 08/17/17 08/17/17 History Allergies Allergy/AdvReac Type Severity Reaction Status Date / Time Sulfa (Sulfonamide AdvReac Unknown Verified 08/17/17 12:25 Antibiotics) Childhood Physical Exam Vitals: Vital Signs Temp Pulse Pulse Resp BP Pulse Ox 08/19/17 11:22 77 20 08/19/17 11:21 97.7 F 77 20 135/64 95 08/19/17 08:23 98.5 F 60 18 118/53 93 L 08/19/17 07:52 87 16 08/19/17 03:27 87 16 95 08/18/17 20:00 97.2 F L 74 16 163/70 95 08/18/17 16:00 97.6 F 67 18 133/67 96 08/18/17 15:41 75 16 Intake and Output 08/18/17 08/19/17 08/19/17 22:59 06:59 14:59 Intake Total 385.737 164.861 508.333 Output Total 900 300 Balance -514.263 164.861 208.333 Intake: Intake, IV Titration 145.737 164.861 268.333 Amount Diltiazem 50 mg In Sodium 45.834 17 28.333 Chloride 0.9% 40 ml @ 10 MG/HR 10 mls/hr IV .Q5H COUNT INCLUDES THE [facility] Rx#:[id number] Heparin Sod,Pork in 0.45% 99.903 147.861 NaCl 25,000 unit In 0.45 % NaCl 1 500ml.bag @ 18 UNITS/KG/HR 20.24 mls/hr IV .Q24H COUNT INCLUDES THE [facility] Rx#: [id number] Sodium Chloride 0.9% 1, 240 000 ml @ 20 mls/hr IV . Q24H ONE Rx#:[id number] Oral 240 240 Output: Urine 900 300 Other: Voiding Method Toilet Toilet Toilet # Voids 1 1 1 Weight 58.3 kg - Constitutional General appearance: no acute distress - Respiratory Respiratory: bilateral: CTA - Cardiovascular Rhythm: irregularly irregular Heart sounds: normal: S1, S2 Abnormal Heart Sounds: systolic murmur Results 08/19/17 05:00 08/19/17 05:00 Cardiac Enzymes 08/19/17 Range/Units 05:00 AST 24 (14-36) U/L Coagulation 08/18/17 08/18/17 08/19/17 Range/Units 14:59 21:41 05:48 APTT 25.8 36.0 H 63.7 H (22.0-30.0) sec CBC 08/19/17 Range/Units 05:00 WBC 8.7 (3.8-10.6) k/uL RBC 4.21 (3.80-5.40) m/uL Hgb 13.2 (11.4-16.0) gm/dL Hct 39.6 (34.0-46.0) % Plt Count 226 (150-450) k/uL Comprehensive Metabolic Panel 08/19/17 Range/Units 05:00 Sodium 139 (137-145) mmol/L Potassium 3.9 (3.5-5.1) mmol/L Chloride 103 (98-107) mmol/L Carbon Dioxide 22 (22-30) mmol/L BUN 13 (7-17) mg/dL Creatinine 0.78 (0.52-1.04) mg/dL Glucose 143 H (74-99) mg/dL Calcium 9.5 (8.4-10.2) mg/dL AST 24 (14-36) U/L ALT 29 (9-52) U/L Alkaline Phosphatase 72 (38-126) U/L Total Protein 6.5 (6.3-8.2) g/dL Albumin 4.0 (3.5-5.0) g/dL Current Medications Generic Name Dose Route Start Last Admin Trade Name Freq PRN Reason Stop Dose Admin Hydrocodone Bitart/Acetaminophen 1 each 08/17/17 16:27 08/17/17 18:12 [place] 5-325 PO 1 each Q8HR PRN Administration Pain Apixaban 2.5 mg 08/19/17 12:00 Eliquis PO BID PHILLIP Donepezil HCl 5 mg 08/18/17 09:00 08/19/17 07:55 Aricept PO 5 mg QAM PHILLIP Administration Furosemide 20 mg 08/18/17 09:00 08/19/17 07:54 Lasix PO 20 mg DAILY PHILLIP Administration Diltiazem HCl 50 mg/ Sodium 50 mls @ 10 mls/hr 08/18/17 13:30 08/19/17 08:22 Chloride IV 10 mg/hr .Q5H PHILLIP 10 mls/hr Administration 10 MG/HR Levothyroxine Sodium 100 mcg 08/17/17 21:00 08/18/17 20:11 Synthroid PO 100 mcg HS PHILLIP Administration Loperamide HCl 4 mg 08/17/17 13:31 Imodium PO ONCE PRN Diarrhea Metoprolol Tartrate 25 mg 08/19/17 21:00 Lopressor PO BID PIHLLIP Pantoprazole Sodium 40 mg 08/17/17 21:00 08/18/17 20:11 Protonix PO 40 mg HS PHILLIP Administration Potassium Chloride 20 meq 08/18/17 09:00 08/19/17 07:54 K-Dur 20 PO 20 meq QAM PHILLIP Administration Intake and Output 08/18/17 08/19/17 08/19/17 22:59 06:59 14:59 Intake Total 385.737 164.861 508.333 Output Total 900 300 Balance -514.263 164.861 208.333 Intake: Intake, IV Titration 145.737 164.861 268.333 Amount Diltiazem 50 mg In Sodium 45.834 17 28.333 Chloride 0.9% 40 ml @ 10 MG/HR 10 mls/hr IV .Q5H [facility]IP Rx#:[id number] Heparin Sod,Pork in 0.45% 99.903 147.861 NaCl 25,000 unit In 0.45 % NaCl 1 500ml.bag @ 18 UNITS/KG/HR 20.24 mls/hr IV .Q24H PHILLIP Rx#: [id number] Sodium Chloride 0.9% 1, 240 000 ml @ 20 mls/hr IV . Q24H ONE Rx#:[id number] Oral 240 240 Output: Urine 900 300 Other: Voiding Method Toilet Toilet Toilet # Voids 1 1 1 Weight 58.3 kg 08/19/17 05:00 08/19/17 05:00 Assessment and Plan Assessment: Assessment #1 A. fib with RVR #2 known chronic atrial fibrillation #3 arterial embolization likely secondary to the A. fib #4 aortic stenosis Plan #1 start the patient on metoprolol and try to wean her from the Cardizem drip #2 I agree to DC the Coumadin and start the patient on one of the noval anticoagulation agents #3 obtain an echocardiogram was Doppler #4 follow-up with the patient. Thank you for allowing us participate in her care
[2017-08-19] MEDS ORDERED: METOPROLOL TARTRATE 25 MG TAB PO STA (14:22)
[2017-08-19 16:59] LABS: Glucose,Whole Blood 114 mg/dL (75-99)
[2017-08-19] MEDS: METOPROLOL TARTRATE 25 MG TAB PO SCH (19:41)
[2017-08-19] MEDS: PANTOPRAZOLE 40 MG TABLET PO SCH (19:41)
[2017-08-19] MEDS: LEVOTHYROXINE 100 MCG TAB PO SCH (19:41)
[2017-08-19 20:40] LABS: Glucose,Whole Blood 159 mg/dL (75-99)
--- NOTE | 2017-08-19 22:16 | PN ---
PROGRESS NOTE CHIEF COMPLAINT: 87-year-old white female atrial fibrillation, rapid ventricular response, left arterial upper extremity arterial occlusion and placed on Eliquis 2.5 b.i.d. Cardiology started on metoprolol 25 b.i.d. Cardiovascular: Irregularly irregular rhythm. Heart rate in the low 100s. Lungs clear. GI soft. Hematology negative Homans. Psych: Fair mood and affect. Blood pressure 130s over 60s. Pulse rate is in 80s to 90s. Respirations 60-70. ASSESSMENT: 1. Atrial fibrillation, rapid ventricular response. 2. Left upper extremity arterial occlusion. 3. Hypertension. 4. Hypothyroidism. 5. Gastroesophageal reflux disease. Continue current treatment. Follow up in the next 24 to 48 hours. Home on Cardizem, started on Eliquis 2.5 b.i.d., started on Lopressor 25 b.i.d. Follow up in the next 24- 48 hours for discharge. MMODL / IJN: [id number] /
[2017-08-20 05:54] LABS: Glucose,Whole Blood 122 mg/dL (75-99)
[2017-08-20 06:16] LABS: HCT 34.9 % (34.0-46.0); HGB 11.9 gm/dL (11.4-16.0); MCH 31.8 pg (25.0-35.0); MCHC 34.2 g/dL (31.0-37.0); MCV 93.2 fL (80.0-100.0); Platelet Count 175 k/uL (150-450); RBC 3.75 m/uL (3.80-5.40); RDW 13.5 % (11.5-15.5); WBC 7.2 k/uL (3.8-10.6)
[2017-08-20 06:38] LABS: Calcium 9.3 mg/dL (8.4-10.2); Magnesium 1.7 mg/dL (1.6-2.3); Potassium 4.4 mmol/L (3.5-5.1)
[2017-08-20] MEDS: FUROSEMIDE 20 MG TAB PO SCH (08:09)
[2017-08-20] MEDS: APIXABAN 2.5 MG TABLET PO SCH (08:09)
[2017-08-20] MEDS: METOPROLOL TARTRATE 25 MG TAB PO SCH (08:09)
[2017-08-20] MEDS: DONEPEZIL 5 MG TAB PO SCH (08:09)
[2017-08-20] MEDS: POTASSIUM CHLORIDE ER 20 MEQ TAB.ER PO SCH (08:09)
[2017-08-20 11:40] LABS: Protein S Antigen 78 % (50 - 140)
[2017-08-20 11:52] VITALS: BP 121/84; PULSE 63; RESP 20; TEMP 97.1
[2017-08-20 12:01] LABS: Glucose,Whole Blood 101 mg/dL (75-99)
[2017-08-20 13:48] LABS: APTT 41 Sec(s) (<43); Dilute Russell Viper Venom 36 Sec(s) (<44)
[2017-08-20] MEDS ORDERED: ASPIRIN 81 MG PO SCH (14:15)
--- NOTE | 2017-08-20 14:15 | P.PN ---
Subjective Progress Note Date: 08/20/17 This is a pleasant 87-year-old female patient with a past medical history significant for chronic atrial fibrillation on oral anticoagulation with Coumadin as well as diabetes and underlying dementia presented to the emergency room complaining of left arm discomfort. The patient was found to have diminished pulse in her left radial artery and left brachial artery. 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 The decision was made toward conservative medical approach and medical treatment only.We get involved in her care because of A. fib. The patient had been in A. fib with uncontrolled heart rate. She is was on Cardizem at 10 mg per hour. Beta elba was added to her medication regime, she had been on Coumadin for anticoagulation, we initiated Eliquis 2-1/2 mg one tablet by mouth twice a day.The patient underwent an echocardiogram a year ago and that showed normal LV function. Also the echo showed mild aortic stenosis. At the time of our examination this morning, patient denies any chest discomfort or palpitations, currently in a paced rhythm with underlying atrial fibrillation, heart rate controlled. Objective - Vital Signs Vital signs: Vital Signs Temp 97.1 F L 08/20/17 11:51 Pulse 63 08/20/17 11:51 Resp 20 08/20/17 11:51 BP 121/84 08/20/17 11:51 Pulse Ox 94 L 08/20/17 11:51 Intake & Output 08/19/17 08/20/17 08/20/17 18:59 06:59 18:59 Intake Total 1027.000 240 340 Output Total 600 0 300 Balance 427.000 240 40 Weight 55 kg Intake: Intake, IV Titration 307.000 Amount Diltiazem 50 mg In Sodium 67.000 Chloride 0.9% 40 ml @ 10 MG/HR 10 mls/hr IV .Q5H PHILLIP Rx#:[id number] Sodium Chloride 0.9% 1, 240 000 ml @ 20 mls/hr IV . Q24H ONE Rx#:[id number] Oral 720 240 340 Output: Urine 600 0 300 Other: Voiding Method Toilet Toilet Toilet # Voids 1 2 1 # Bowel Movements 1 - Exam PHYSICAL EXAMINATION: GENERAL: 87-year-old female in no apparent distress at the time of my examination. HEENT: Head is atraumatic, normocephalic. Pupils equal, round. Sclera anicteric. Conjunctiva are clear. Mucous membranes of the mouth are moist. Neck is supple. There is no elevated jugular venous pressure.] bruit is heard. HEART EXAMINATION: Heart S1 and S2 irregularly irregular a systolic murmur is heard. CHEST EXAMINATION: Lungs are clear to auscultation and precussion. No chest wall tenderness is noted on palpation or with deep breathing. ABDOMEN: Soft, nontender. Bowel sounds are heard. No organomegaly noted. EXTREMITIES: 1+ peripheral pulses with no evidence of peripheral edema and no calf tenderness noted. NEUROLOGIC patient is awake, alert and oriented ?-3. . - Labs CBC & Chem 7: 08/20/17 05:45 08/20/17 05:45 Labs: Abnormal Lab Results - Last 24 Hours (Table) 08/18/17 08/19/17 08/19/17 Range/Units 05:42 16:55 20:38 RBC (3.80-5.40) m/uL Glucose (74-99) mg/dL POC Glucose (mg/dL) 114 H 159 H (75-99) mg/dL Hemoglobin A1c 6.4 H (4.0-6.0) % 08/20/17 08/20/17 08/20/17 Range/Units 05:45 05:45 05:52 RBC 3.75 L (3.80-5.40) m/uL Glucose 111 H (74-99) mg/dL POC Glucose (mg/dL) 122 H (75-99) mg/dL Hemoglobin A1c (4.0-6.0) % 08/20/17 Range/Units 11:59 RBC (3.80-5.40) m/uL Glucose (74-99) mg/dL POC Glucose (mg/dL) 101 H (75-99) mg/dL Hemoglobin A1c (4.0-6.0) % Assessment and Plan Plan: Assessment and plan #1 A. fib with RVR #2 known chronic atrial fibrillation #3 arterial embolization likely secondary to the A. fib #4 aortic stenosis Plan From cardiology's perspective, we will recommend to continue the patient on her current medications including beta elba and Eliquis. We will add a baby aspirin to her medication regime. Review echocardiogram with Doppler study which remains pending. DNP note has been reviewed, I agree with a documented findings and plan of care. Patient was seen and examined.
--- NOTE | 2017-08-20 17:53 | ECHOF ---
Referral Reason:a-fib MEASUREMENTS -------- HEIGHT: 167.6 cm WEIGHT: 54.9 kg BP: 138/79 RVIDd: 3.9 cm (< 3.3) IVSd: 1.0 cm (0.6 - 1.1) LVIDd: 5.4 cm (3.9 - 5.3) LVPWd: 1.0 cm (0.6 - 1.1) IVSs: 1.4 cm LVIDs: 4.6 cm LVPWs: 1.5 cm LA Diam: 4.9 cm (2.7 - 3.8) LAESV Index (A-L): 59.09 ml/m Ao Diam: 2.8 cm (2.0 - 3.7) AV Cusp: 1.1 cm (1.5 - 2.6) MV EXCURSION: 9.761 mm (> 18.000) MV EF SLOPE: 36 mm/s (70 - 150) EPSS: 1.3 cm AV maxP.08 mmHg AV meanP.79 mmHg AR PHT: 758 ms RAP: 15.00 mmHg RVSP: 57.98 mmHg FINDINGS -------- Atrial fibrillation. Pacerwire seen in RV and RA. This was a technically good study. The left ventricle is mildly dilated. Left ventricular wall thickness is normal. Overall left constance tricular systolic function is severely impaired with, an EF between 20 - 25 %. The right ventricle is moderately enlarged. LA is severely dilated >40 ml/m2 The right atrium is normal in size. There is mild aortic valve sclerosis. There is ecsh-cf-ywrutzih aortic regurgitation. There is mi ld aortic stenosis present. Peak/mean gradient across the Aortic Valve is 16.08mmHg / 7.79mmHg. The mitral valve leaflets are mildly thickened. Mild mitral annular calcification present. Modera pn-tl-iwtlxk mitral regurgitation is present. Mild tricuspid regurgitation present. There is severe pulmonary hypertension. The right ventricul ar systolic pressure, as measured by Doppler, is 57.98mmHg. Trace/mild (physiologic) pulmonic regurgitation. The aortic root size is normal. The inferior vena cava is dilated with no significant inspiratory collapse which is consistent estima nicci right atrial pressure of >15 mmHg. There is no pericardial effusion. CONCLUSIONS -------- 1. Atrial fibrillation. 2. Pacerwire seen in RV and RA. 3. This was a technically good study. 4. The left ventricle is mildly dilated. 5. Left ventricular wall thickness is normal. 6. Overall left ventricular systolic function is severely impaired with, an EF between 20 - 25 %. 7. The right ventricle is moderately enlarged. 8. LA is severely dilated >40 ml/m2 9. The right atrium is normal in size. 10. There is mild aortic valve sclerosis. 11. There is cvqz-gm-ttufrglo aortic regurgitation. 12. There is mild aortic stenosis present. 13. Peak/mean gradient across the Aortic Valve is 16.08mmHg / 7.79mmHg. 14. The mitral valve leaflets are mildly thickened. 15. Mild mitral annular calcification present. 16. Fdyzcrmz-dw-sxekov mitral regurgitation is present. 17. Mild tricuspid regurgitation present. 18. There is severe pulmonary hypertension. 19. The right ventricular systolic pressure, as measured by Doppler, is 57.98mmHg. 20. Trace/mild (physiologic) pulmonic regurgitation. 21. The aortic root size is normal. 22. The inferior vena cava is dilated with no significant inspiratory collapse which is consistent es timated right atrial pressure of >15 mmHg. 23. There is no pericardial effusion. MEDIA TRAFFIC MANAGER: Kaylyn Grayson RDCS
[2017-08-21] MEDS ORDERED: LINAGLIPTIN 5 MG TABLET PO SCH (09:00)
--- NOTE | 2017-08-21 13:14 | CDI ---
Last Revision, January 2017 Documentation Clarification Form Date: 08/21/2017 From: Randa Jurgen Adia Bertrand, Tear Down Matcher Hours-8:30 am & 5 pm Lola Admit Date: 08/17/2017 12:40:00 PM Patient Name: Manasa Mckeon Visit Number: [id number] Discharge Date: 08/20/17 ATTENTION: The Clinical Documentation Specialists (CDI) and [facility] Coding Staff appreciate your assistance in clarifying documentation. Please respond to the clarification below the line at the bottom and electronically sign. The CDI & [facility] Coding staff will review the response and follow-up if needed. Please note: Queries are made part of the Legal Health Record. If you have any questions, please contact the author of this message via ITS. Dr. Kaen Quintana Per ED note "patient's chest x-ray shows mild CHF". No previous medical history of heart failure documented. She is on Lasix 20 mg po at home. BNP: none Echocardiogram Results: Overall left ventricular systolic function is severely impaired with an EF between 20-25%. Right ventricular systolic pressure, as measured by Doppler is 57.98 mmHg. Chest X Ray: Suspect degree of CHF exacerbation as there is marked cardiomegaly with small right greater than left pleural effusions and suspected mild interstitial edema on background of mild chronic parenchymal change. Treatment: Lasix 20 mg po In your professional opinion, can you please clarify the acuity and type of CHF if known? Systolic Heart Failure: Diastolic Heart Failure: Systolic & Diastolic Heart Failure: Acute Chronic Acute on Chronic Unable to Determine Other, please specify MTDD
[2017-08-24 11:32] LABS: Protein C Antigen 79 % (72-160)
--- NOTE | 2017-09-24 15:24 | P.PN ---
Progress Note - Text Progress Note Date: 09/24/17 This is an addendum to the cardiology note dictated, patient has systolic congestive heart failure acute on chronic, ejection fraction 20-25%. DNP note has been reviewed, I agree with a documented findings and plan of care. Patient was seen and examined.
== END 2017-08-20 16:01 | disposition home or self-care (01) | DRG 300 ==
LOC: EC 10:27 → 6SEL 12:40
PROVIDERS: ADMIT Family Medicine; ATTEND Family Medicine
PROC: B31JYZZ Fluoroscopy of Left Upper Extremity Arteries using Other Contrast (ICD-10-PCS; principal; 2017-08-18 09:23)
DX: I70.228 Atherosclerosis of native arteries of extremities with rest pain, other extremity (principal); I70.92 Chronic total occlusion of artery of the extremities; I50.22 Chronic systolic (congestive) heart failure; E11.51 Type 2 diabetes mellitus with diabetic peripheral angiopathy without gangrene; I65.23 Occlusion and stenosis of bilateral carotid arteries; I48.2 Chronic atrial fibrillation; I11.0 Hypertensive heart disease with heart failure; I69.398 Other sequelae of cerebral infarction; F03.90 Unspecified dementia, unspecified severity, without behavioral disturbance, psychotic disturbance, mood disturbance, and anxiety; Z66 Do not resuscitate; H54.61 Unqualified visual loss, right eye, normal vision left eye; R40.2362 Coma scale, best motor response, obeys commands, at arrival to emergency department; R40.2142 Coma scale, eyes open, spontaneous, at arrival to emergency department; R40.2252 Coma scale, best verbal response, oriented, at arrival to emergency department; H40.9 Unspecified glaucoma; I35.0 Nonrheumatic aortic (valve) stenosis; K21.9 Gastro-esophageal reflux disease without esophagitis; I49.3 Ventricular premature depolarization; E78.5 Hyperlipidemia, unspecified; E06.3 Autoimmune thyroiditis; E89.0 Postprocedural hypothyroidism; M19.91 Primary osteoarthritis, unspecified site; Z79.01 Long term (current) use of anticoagulants; Z79.84 Long term (current) use of oral hypoglycemic drugs; Z79.890 Hormone replacement therapy; Z79.899 Other long term (current) drug therapy; Z95.0 Presence of cardiac pacemaker; Z87.440 Personal history of urinary (tract) infections; Z87.81 Personal history of (healed) traumatic fracture; Z86.14 Personal history of Methicillin resistant Staphylococcus aureus infection; Z98.42 Cataract extraction status, left eye; Z98.41 Cataract extraction status, right eye; Z88.2 Allergy status to sulfonamides; Z82.49 Family history of ischemic heart disease and other diseases of the circulatory system; Z86.59 Personal history of other mental and behavioral disorders
CPT/HCPCS: 36216; 36415; 70450; 71046; 75710; 80048; 80053; 82550; 82553; 83036; 83735; 84484; 85025; 85027; 85301; 85302; 85305; 85610; 85613; 85730; 93005; 93306; 93880; 94760; 96365; 96376; 99291